=== PATIENT | female | born 1990 | race Caucasian/White ===

== ENCOUNTER 2020-05-31 10:45 | Inpatient (IN) | payer OTHER ==
[2020-06-23 09:28] LABS: ABSOLUTE EOSINOPHILS # (AUTO) 0.3 10^3/uL (0.0-0.6); ABSOLUTE LYMPHOCYTES (AUTO) 1.7 10^3/uL (0.5-4.7); ABSOLUTE MONOCYTES (AUTO) 0.5 10^3/uL (0.1-1.4); ABSOLUTE NEUT (AUTO) 4.6 10^3/uL (1.7-8.2); BASOPHILS % (AUTO) 0.3 % (0-2); EOSINOPHILS % (AUTO) 3.7 % (0-6); HEMATOCRIT 37.1 % (36.0-47.0); HEMOGLOBIN 13.3 g/dL (12.0-15.5); LYMPHOCYTES % (AUTO) 24.6 % (13-45); MEAN CORPUSCULAR HGB CONC 35.9 g/dL (32.0-36.0); MEAN CORPUSCULAR VOLUME 95 fl (80-97); MONOCYTES % (AUTO) 6.7 % (3-13); PLATELET COUNT 226 10^3/uL (150-450); RED BLOOD COUNT 3.91 10^6/uL (3.72-5.28); RED CELL DISTRIBUTION WIDTH 14.3 % (11.5-14.0); SEGMENTED NEUTROPHILS % (AUTO) 64.7 % (42-78); TOTAL CELLS COUNTED % (AUTO) 100 %; WHITE BLOOD COUNT 7.1 10^3/uL (4.0-10.5)
[2020-06-23 09:33] LABS: APPEARANCE,URINE CLOUDY; BILIRUBIN,URINE NEGATIVE (NEGATIVE); COLOR,URINE AMBER; GLUCOSE, URINE NEGATIVE (NEGATIVE); KETONES,URINE 20 mg/dL (NEGATIVE); LEUKOCYTE ESTERASE,URINE NEGATIVE (NEGATIVE); NITRITE,URINE NEGATIVE (NEGATIVE); PROTEIN,URINE 30 mg/dL (NEGATIVE); URINE SPECIFIC GRAVITY 1.019
[2020-06-23 09:45] LABS: URINE AMPHETAMINES SCREEN NEGATIVE; URINE BARBITURATES SCREEN NEGATIVE; URINE BENZODIAZEPINES SCREEN NEGATIVE; URINE COCAINE SCREEN NEGATIVE; URINE MARIJUANA (THC) SCREEN NEGATIVE; URINE METHADONE SCREEN NEGATIVE; URINE PHENCYCLIDINE SCREEN NEGATIVE
[2020-06-28] MEDS ORDERED: LACTATED RINGERS 1000 ML IV PRN (05:00)
[2020-06-28] MEDS ORDERED: RINGERS SOLUTION,LACTATED 1,000 ML IV PRN ×2 (05:00→11:50)
[2020-06-28] MEDS ORDERED: CEFAZOLIN 2 GM/D5W RTU 2 GM/50 ML RTUPB IV PRN (05:00)
[2020-06-28] MEDS ORDERED: ONDANSETRON HCL INJ/PF 4 MG/2 ML SDV ONE (09:31)
[2020-06-28] MEDS ORDERED: EPHEDRINE SULFATE INJ 50 MG/1 ML AMPULE ONE (09:31)
[2020-06-28] MEDS ORDERED: ACETAMINOPHEN 1,000 MG/100 ML RTUPB IV ONE (09:31)
[2020-06-28] MEDS ORDERED: OXYTOCIN 10 UNIT/ML VIAL ONE ×2 (09:31→11:58)
[2020-06-28] MEDS ORDERED: FENTANYL CITRATE INJ/PF 100 MCG/2 ML AMPUL ONE (09:31)
[2020-06-28] MEDS ORDERED: MIDAZOLAM 2 MG/2 ML INJ ONE (09:31)
[2020-06-28] MEDS ORDERED: KETOROLAC TROMETHAMINE INJ/PF 30 MG/1 ML SDV ONE (09:31)
[2020-06-28] MEDS ORDERED: DEXAMETHASONE SOD PHOSPHATE INJ 4 MG/1 ML VIAL ONE (09:32)
[2020-06-28] MEDS ORDERED: MORPHINE SULFATE 10 MG/ML INJ ONE (09:32)
[2020-06-28] MEDS ORDERED: ONDANSETRON HCL INJ/PF 4 MG/2 ML SDV IV PRN (11:08)
[2020-06-28] MEDS ORDERED: MEPERIDINE HCL/PF INJ 25 MG/1 ML DISP.SYRIN IV PRN (11:08)
[2020-06-28] MEDS ORDERED: PROMETHAZINE HCL INJ 25 MG/1 ML VIAL IV PRN ×3 (11:08→11:50)
[2020-06-28] MEDS ORDERED: OXYCODONE-ACETAMINOPHEN 5-325 MG TABLET PO PRN ×3 (11:08→11:50)
[2020-06-28] MEDS ORDERED: FENTANYL CITRATE INJ/PF 100 MCG/2 ML AMPUL IV PRN ×3 (11:08)
[2020-06-28] MEDS ORDERED: MORPHINE SULFATE 10 MG/ML INJ IV PRN (11:08)
[2020-06-28] MEDS ORDERED: DIPHENHYDRAMINE HCL 50 MG/ML VIAL IV PRN (11:08)
[2020-06-28] MEDS ORDERED: DIPH/PERTUSS(ACELL)/TETANUS VAC/PF 0.5 ML SYR (>=10YO) IM PRN (11:50)
[2020-06-28] MEDS ORDERED: OXYTOCIN/0.9 % SODIUM CHLORIDE 30 UNIT/500 ML RTUINJ IV PRN (11:50)
[2020-06-28] MEDS ORDERED: HYDROMORPHONE HCL INJ/PF 2 MG/ML AMPULE IV PRN (11:50)
[2020-06-28] MEDS ORDERED: SIMETHICONE 80 MG TAB.CHEW PO PRN (11:50)
[2020-06-28] MEDS ORDERED: MEASLES,MUMPS&RUBELLA VACC/PF 0.5 ML VIAL SUBCUT PRN (11:50)
[2020-06-28] MEDS ORDERED: ACETAMINOPHEN 1,000 MG/100 ML RTUPB IV PRN (11:50)
[2020-06-28] MEDS ORDERED: ACETAMINOPHEN 325 MG TABLET PO PRN (11:50)
--- NOTE | 2020-06-28 11:54 | Operative Report ---
Operative Report DATE OF SURGERY: 06/28/20 PREOPERATIVE DIAGNOSIS: Patient desires a repeat and tubal ligation w ith Filshie clips POSTOPERATIVE DIAGNOSIS: Same OPERATION: Repeat via low transverse uterine incision and tubal ligation with bilateral Filshie clip placement SURGEON: SUDHEER CUENCA ANESTHESIA: Spinal TISSUE REMOVED OR ALTERED: Placenta COMPLICATIONS: None ESTIMATED BLOOD LOSS: 400 cc INTRAOPERATIVE FINDINGS: Viable infant crying at delivery. Normal uterus tubes ovaries PROCEDURE: Patient was taken to the OR and placed in supine position after her spinal anesthesia. She is prepared and draped in sterile fashion. Epps was placed for drainage of the bladder. Low transverse incision was made and carried down the level of the fascia. The previous scar was excised. The fascial incision was made with knife and extended bilaterally with curved Myles scissors. The fascia was off the rectus muscles using sharp and blunt dissection. The rectus muscles are in the midline. The peritoneum was entered without incident. Bladder blade was placed in uterine segment was identified. A low transverse incision was made creating a bladder flap. Bladder blade was placed low transverse uterine incision was made with the knife and extended with fingertips. The baby was delivered with some fundal pressure. Mouth and nose were suctioned free. The cord is doubly clamped and cut. Baby is passed off to the deep sea diver in attendance. The placenta was manually extracted with trailing membranes. The uterus was externalized wrapped in a moist lap sponge. Uterine contents wiped free. Uterus was closed with a running locking layer of 0 chromic suture using the second layer to imbricate the first completing a double layer closure of the uterus. The serosa was closed with a running 2-0 chromic stitch. A Filshie clip was placed across the mid isthmic portion of each fallopian tube after identifying the fimbria on each tube. The pelvis was irrigated and suctioned free of fluid the uterus was replaced in the abdomen. The abdominal wall peritoneum was closed with running 2-0 chromic stitch. Fascia was closed with a running 0 Vicryl in 2 segments. Aleida's layer was brought together with 0 plain gut stitch and the skin was closed with running subcuticular 4-0 undyed Vicryl stitch. The wound was dressed mother and baby did well.
[2020-06-28] MEDS: OXYCODONE-ACETAMINOPHEN 5-325 MG TABLET PO PRN (15:11)
[2020-06-28] MEDS: IBUPROFEN 800 MG TABLET PO SCH ×2 (16:34→17:53)
[2020-06-28] MEDS: KETOROLAC TROMETHAMINE INJ/PF 30 MG/1 ML SDV IV SCH ×2 (20:22→21:56)
[2020-06-28] MEDS: DOCUSATE SODIUM 100 MG CAPSULE PO SCH (20:55)
[2020-06-29] MEDS: OXYCODONE-ACETAMINOPHEN 5-325 MG TABLET PO PRN ×2 (04:25→18:34)
[2020-06-29] MEDS: KETOROLAC TROMETHAMINE INJ/PF 30 MG/1 ML SDV IV SCH (05:38)
[2020-06-29] MEDS: IBUPROFEN 800 MG TABLET PO SCH ×5 (05:40→23:47)
[2020-06-29 07:56] LABS: HEMATOCRIT 35.6 % (36.0-47.0); HEMOGLOBIN 12.7 g/dL (12.0-15.5); MEAN CORPUSCULAR HEMOGLOBIN 34.3 pg (27.0-33.4); MEAN CORPUSCULAR HGB CONC 35.7 g/dL (32.0-36.0); MEAN CORPUSCULAR VOLUME 96 fl (80-97); PLATELET COUNT 213 10^3/uL (150-450); RED CELL DISTRIBUTION WIDTH 14.4 % (11.5-14.0); WHITE BLOOD COUNT 10.2 10^3/uL (4.0-10.5)
[2020-06-29] MEDS ORDERED: DIPH/PERTUSS(ACELL)/TETANUS VAC/PF 0.5 ML SYR (>=10YO) IM PRN (08:00)
[2020-06-29] MEDS ORDERED: MEASLES,MUMPS&RUBELLA VACC/PF 0.5 ML VIAL SUBCUT PRN (08:00)
[2020-06-29] MEDS ORDERED: PROMETHAZINE HCL INJ 25 MG/1 ML VIAL IV PRN (08:00)
[2020-06-29] MEDS: DOCUSATE SODIUM 100 MG CAPSULE PO SCH ×2 (09:17→17:19)
[2020-06-29] MEDS: PRENATAL VITAMIN W DHA CAPSULE PO SCH (09:17)
--- NOTE | 2020-06-29 13:05 | PDOC PROGRESS REPORT ---
Subjective-OB Progress Note for:: 06/29/20 Subjective: 29yo G4 now P4 s/p repeat ppd1. Pt is ambulating, and voiding without difficulty. Reports pain is well controlled with medication, no concerns at this time Physical Exam (OB) Vital Signs: Temp Pulse Resp BP Pulse Ox 97.7 F 67 16 98/51 L 96 06/29/20 11:05 06/29/20 11:05 06/29/20 11:05 06/29/20 11:05 06/29/20 11:05 Intake & Output 06/28/20 06/29/20 06/30/20 06:59 06:59 06:59 Intake Total 1700 2380 Output Total 7300 Balance -5600 2380 - General General Appearance: Appears well In distress: None - PIH/Pre-Eclampsia DTR's: 1 + Clonus: Negative Headache: Absent Epigastric Pain: No Visual Changes: No - Dressing Removed: No Incision: Dressing, Well Approximated Closure Type: Surgical Glue - Maternal Morbidity 59. Maternal Morbidity (serious complications experinced by the mother associated with labor and delivery: None of the above - Lochia Lochia Amount: Scant < 10 ml Lochia Color: Rubra/Red - Abdomen Description: Soft, Round Hernia Present: No Fundal Description: Firm, Midline Fundal Height: u/u - u/2 - Respiratory Respiratory Status: No respiratory distress - Extremities Upper extremity: Normal inspection Lower extremities: Normal inspection - Neurological Cognition: Normal Orientation: AAOx4 - Psychological Associated symptoms: Normal affect, Normal mood Objective-Diagnostic Laboratory: 06/29/20 07:22 06/29/20 07:22 WBC 10.2 RBC 3.70 L Hgb 12.7 Hct 35.6 L MCV 96 MCH 34.3 H MCHC 35.7 RDW 14.4 H Plt Count 213 Assessment and Plan(PN) - Assessment and Plan (1) S/P repeat low transverse Is this a current diagnosis for this admission?: Yes Plan: routine pp care (2) Tubal ligation status Is this a current diagnosis for this admission?: Yes Plan: routine pp care - Time Spent with Patient Time with patient: Less than 15 minutes Medications reviewed and adjusted accordingly: Yes - Disposition Anticipated Discharge Disposition: Home, Self Care Anticipated Discharge Timeframe: within 24 hours
[2020-06-30] MEDS: OXYCODONE-ACETAMINOPHEN 5-325 MG TABLET PO PRN (04:54)
[2020-06-30] MEDS: IBUPROFEN 800 MG TABLET PO SCH ×2 (06:31→13:22)
--- NOTE | 2020-06-30 09:00 | PDOC DISCHARGE SUMMARY ---
Impression - Admit/DC Date/PCP Admission Date/Primary Care Provider: 06/28/20 08:04 PANCHO JULES MD Discharge Date: 06/30/20 - Discharge Diagnosis (1) S/P repeat low transverse Is this a current diagnosis for this admission?: Yes (2) Tubal ligation status Is this a current diagnosis for this admission?: Yes - Additional Information Resuscitation Status: Full Code Discharge Diet: Regular Discharge Activity: Balance Activity w/Rest, No Lifting Over 10 Pounds, No Lifting/Push/Pulling, Pelvic Rest, No tub bath Referrals: PANCHO JULES MD [Primary Care Provider] - Prescriptions: Oxycodone HCl/Acetaminophen [Percocet 5-325 mg Tablet] 1 tab PO Q4HP PRN #30 tablet PRN Reason: For Pain Scale 3-5 Ibuprofen [Motrin 800 mg Tablet] 800 mg PO Q8HP PRN #60 tablet PRN Reason: Home Medications: Famotidine/Ca Carb/Mag Hydrox [Pepcid Complete Tablet Chew] 1 tab PO DAILY 06/23/20 Vits96/Iron Fum/Folic [ Tablet] 1 tab PO DAILY 06/23/20 Ibuprofen [Motrin 800 mg Tablet] 800 mg PO Q8HP PRN #60 tablet 06/30/20 Oxycodone HCl/Acetaminophen [Percocet 5-325 mg Tablet] 1 tab PO Q4HP PRN #30 tablet 06/30/20 HPI Gestational Age: 39 Reason(s) for Admission: Ceasarean Section-Repeat Procedures: None Intrapartum Procedure(s): : Low Cervical, Transverse Hospital Course 59. Maternal Morbidity (serious complications experinced by the mother associated with labor and delivery: None of the above Results Laboratory Results: WBC 10.2 10^3/uL (4.0-10.5) 06/29/20 07:22 RBC 3.70 10^6/uL (3.72-5.28) L 06/29/20 07:22 Hgb 12.7 g/dL (12.0-15.5) 06/29/20 07:22 Hct 35.6 % (36.0-47.0) L 06/29/20 07:22 MCV 96 fl (80-97) 06/29/20 07:22 MCH 34.3 pg (27.0-33.4) H 06/29/20 07:22 MCHC 35.7 g/dL (32.0-36.0) 06/29/20 07:22 RDW 14.4 % (11.5-14.0) H 06/29/20 07:22 Plt Count 213 10^3/uL (150-450) 06/29/20 07:22 Lymph % (Auto) 24.6 % (13-45) 06/23/20 08:25 Sibley % (Auto) 6.7 % (3-13) 06/23/20 08:25 Eos % (Auto) 3.7 % (0-6) 06/23/20 08:25 Baso % (Auto) 0.3 % (0-2) 06/23/20 08:25 Absolute Neuts (auto) 4.6 10^3/uL (1.7-8.2) 06/23/20 08:25 Absolute Lymphs (auto) 1.7 10^3/uL (0.5-4.7) 06/23/20 08:25 Absolute Monos (auto) 0.5 10^3/uL (0.1-1.4) 06/23/20 08:25 Absolute Eos (auto) 0.3 10^3/uL (0.0-0.6) 06/23/20 08:25 Absolute Basos (auto) 0.0 10^3/uL (0.0-0.2) 06/23/20 08:25 Seg Neutrophils % 64.7 % (42-78) 06/23/20 08:25 Urine Color PETER 06/23/20 08:10 Urine Appearance CLOUDY 06/23/20 08:10 Urine pH 6.0 (5.0-9.0) 06/23/20 08:10 Ur Specific Howe 1.019 06/23/20 08:10 Urine Protein 30 mg/dL (NEGATIVE) H 06/23/20 08:10 Urine Glucose (UA) NEGATIVE mg/dL (NEGATIVE) 06/23/20 08:10 Urine Ketones 20 mg/dL (NEGATIVE) H 06/23/20 08:10 Urine Blood NEGATIVE (NEGATIVE) 06/23/20 08:10 Urine Nitrite NEGATIVE (NEGATIVE) 06/23/20 08:10 Urine Bilirubin NEGATIVE (NEGATIVE) 06/23/20 08:10 Urine Urobilinogen 2.0 mg/dL (<2.0) H 06/23/20 08:10 Ur Leukocyte Esterase NEGATIVE (NEGATIVE) 06/23/20 08:10 Urine WBC (Auto) 6 /HPF 06/23/20 08:10 Urine RBC (Auto) 2 /HPF 06/23/20 08:10 Squamous Epi Cells Auto 21 /HPF 06/23/20 08:10 U Non-Squamous Epis Auto 1 /HPF 06/23/20 08:10 Urine Mucus (Auto) MANY /LPF 06/23/20 08:10 Urine Ascorbic Acid NEGATIVE (NEGATIVE) 06/23/20 08:10 Urine Opiates Screen NEGATIVE 06/23/20 08:10 Urine Methadone Screen NEGATIVE 06/23/20 08:10 Ur Barbiturates Screen NEGATIVE 06/23/20 08:10 Ur Phencyclidine Scrn NEGATIVE 06/23/20 08:10 Ur Amphetamines Screen NEGATIVE 06/23/20 08:10 U Benzodiazepines Scrn NEGATIVE 06/23/20 08:10 Urine Cocaine Screen NEGATIVE 06/23/20 08:10 U Marijuana (THC) Screen NEGATIVE 06/23/20 08:10 COVID-19 Source See comment 06/23/20 08:10 COVID-19 (ELIZABETH) Not Detected (Not Detect) 06/23/20 08:10 Blood Type O POSITIVE 06/27/20 13:55 Antibody Screen NEGATIVE 06/27/20 13:55 Plan Plan of Treatment: f/u at [facility] as scheduled Time Spent: Less than 30 Minutes
[2020-06-30] MEDS: DOCUSATE SODIUM 100 MG CAPSULE PO SCH (10:33)
[2020-06-30] MEDS: PRENATAL VITAMIN W DHA CAPSULE PO SCH (10:33)
[2020-06-30 11:53] VITALS: BP 121/59
== END 2020-06-30 13:14 | disposition home or self-care (01) | DRG 785 ==
LOC: 2S 06-28 08:04
PROVIDERS: ADMIT Obstetrics & Gynecology; ATTEND Obstetrics & Gynecology
PROC: 10D00Z1 Extraction of Products of Conception, Low, Open Approach (ICD-10-PCS; principal; 2020-06-28)
PROC: 0UL70CZ Occlusion of Bilateral Fallopian Tubes with Extraluminal Device, Open Approach (ICD-10-PCS; 2020-06-28)
DX: O34.211 Maternal care for low transverse scar from previous cesarean delivery (principal); Z30.2 Encounter for sterilization; Z37.0 Single live birth; Z3A.39 39 weeks gestation of pregnancy; O99.344 Other mental disorders complicating childbirth; F32.9 Major depressive disorder, single episode, unspecified; F41.9 Anxiety disorder, unspecified; G47.419 Narcolepsy without cataplexy; Z83.3 Family history of diabetes mellitus
CPT/HCPCS: 1961; 36415; 59025; 80307; 81001; 85025; 85027; 86850; 86900; 86901; 87635; 94760; 94799; C9803; J0131; J0690; J1100; J1885; J2250; J2270; J2405; J2590; J3010; J3490; J7120